=== PATIENT | female | born 1945 | race Caucasian/White ===

== ENCOUNTER 2021-08-31 08:43 | Day surgery (SDC) | payer MEDICARE, OTHER ==
[~2021-08-31] VITALS: Ht 154.9 cm; Wt 79.6 kg
[~2021-08-31 08:43] MED LIST: CAL MAG ZINC +1 EAC1 PO; CEFDINIR300 MG PO; LIPITOR40 MG PO; PROLIA60 MG/1 ML SUB-Q; URISTAT ULTRA99.5 MG PO
[2021-08-31] MEDS ORDERED: CLARITIN10 MG PO (09:21)
[2021-08-31] MEDS ORDERED: LEVOTHYROXINE25 MC1 PO (09:23)
[2021-08-31] MEDS ORDERED: LEVOTHYROXINE88 MC1 PO (09:24)
[2021-08-31] MEDS ORDERED: ZESTRIL40 MG PO (09:24)
--- NOTE | 2021-08-31 10:38 | NUR ---
08/31/21 1038 Sheets,Gogo 1032 PT ARRIVED TO PACU ON 2L VIA NC, PT WAKES EASILY AND DENIES PAIN. VSS. PT EASILY FALLS BACK TO SLEEP. 1036 CO2 53 AND RN WAKES PT AND ENCOURAGES DEEP BREATHING, CO2 DECREASED TO LOW 40S. PT FALLS EASILY BACK TO SLEEP.
--- NOTE | 2021-09-01 06:06 | OR ---
[facility] [address] [place], [place] [address] Signed DATE OF OPERATION: 08/31/2021 SURGEON: Sangeetha Trent MD PREOPERATIVE DIAGNOSES: 1. Personal history of colonic polyps 2010. 2. Internal hemorrhoids. 3. Mother with colonic polyps in her 60s. POSTOPERATIVE DIAGNOSES: 1. 4 mm polyp base of cecum/periappendiceal orifice. 2. 6 mm sessile polyp opposite ileocecal valve. 3. 3 mm polyp mid right colon. 4. 3 mm polyps x2 at 40 cm. 5. 3 mm polyp at 7 cm. 6. Minimal sigmoid diverticulosis. 7. Small internal anal skin tags. 8. Angulated rectosigmoid junction. PROCEDURE: Colonoscopy with hot biopsy. ESTIMATED BLOOD LOSS: None. INDICATIONS: Any is a 76-year-old female asked to see me for a followup colonoscopy. Dr. Baez did her colonoscopy in 2010 at the age of 65. She had adenomatous polyps removed. All polyps were less than 6 mm in diameter. She had internal hemorrhoids. She used Versed and propofol. In five years, she went back in [address] Baez at the age of 70. Again, she had adenomatous polyps removed and the internal hemorrhoids were noted. She was asked to follow up in 5 years. He has since retired in January 2021. She finally made her way over to my office. She told me her mother had benign colonic polyps removed in her 60s. She has no lower GI complaints. No family history of colon cancer. She is known to have a heart murmur. The echocardiogram in 2008 showed minimal aortic stenosis with a cross-sectional area of 1.7 cm2. She said it never limits her activities. Her has been and he is in a wheelchair much of the time and she has to push him around. In the office, I had given her a pamphlet on colonoscopy. She recalls the test well. There is risk including, but not limited to gas bloating, crampy abdominal pain, bleeding, perforation requiring surgery, and missed Electronically Signed By: SANGEETHA TRENT MD 09/01/21 0606 PATIENT NAME: ANY MCCOY OPERATIVE REPORT DATE OF : 49 REPORT #: [id number] PHYSICIAN: SANGEETHA TRENT MD PCP: HUNTER HOLGUIN MD REPORT IS CONFIDENTIAL AND NOT TO BE RELEASED WITHOUT AUTHORIZATION [facility] [address] [place], [place] [address] Signed diagnosis. She also understands the need for the IV conscious sedation. She had expressed understanding and wished to proceed. PROCEDURE NOTE: Any was taken into our endoscopy suite and placed in the left lateral decubitus position. She was given a total of 5 mg of Versed and 200 mcg of fentanyl to cover the case. A digital rectal exam was performed and this was unremarkable. The adult colonoscope had been introduced and advanced under direct visualization of the camera. Her rectosigmoid junction actually took a few minutes as it is quite angulated. It did drag a little on the scope. The scope then passed fairly readily up into the cecum. We used a little bit of abdominal compression and additional sedation in order to advance the scope. Her prep was good. We could easily see the appendiceal orifice and the ileocecal valve. The above-mentioned polyps had been removed with the help of hot biopsy forceps. The scope was then slowly withdrawn. We had taken pictures throughout for photodocumentation. We can see that she does have sigmoid diverticulosis. They were small in size, few in number, and scattered about. Once in the rectum, the scope had been retroflexed and it looks like she mainly has several small internal anal skin tags. After this, the gas was suctioned out and the colonoscope removed. nAy tolerated the procedure quite well. RECOMMENDATIONS: I will see Any back in my office in 7 to 14 days to review her results. I suspect she will stay on the 5-year rotation. She could consider propofol infusion in the future as she is getting older and the risk of perforation is higher and her rectosigmoid junction is quite difficult. Sangeetha Trent MD ALB/MODL /[id number] cc: MD Sangeetha Chavez MD Electronically Signed By: SANGEETHA TRENT MD 09/01/21 0606 PATIENT NAME: ANY MCCOY OPERATIVE REPORT DATE OF : 49 REPORT #: [id number] PHYSICIAN: SANGEETHA TRENT MD PCP: HUNTER HOLGUIN MD REPORT IS CONFIDENTIAL AND NOT TO BE RELEASED WITHOUT AUTHORIZATION [address] [address] Signed Copies: HUNTER HOLGUIN MD, ANDREW L MD ~ Electronically Signed By: SANGEETHA TRENT MD 09/01/21 0606 PATIENT NAME: ANY MCCOY OPERATIVE REPORT DATE OF : 49 REPORT #: [id number] PHYSICIAN: SANGEETHA TRENT MD PCP: HUNTER HOLGUIN MD REPORT IS CONFIDENTIAL AND NOT TO BE RELEASED WITHOUT AUTHORIZATION
--- NOTE | 2021-09-04 15:31 | PATH ---
[facility] [address] [place], [place] [address] Signed SPECIMEN(S): A CECUM POLYP SPECIMEN(S): B ILEOCECAL VALVE POLYP OPPOSITE SPECIMEN(S): C MID ASCENDING/RIGHT COLON POLYP SPECIMEN(S): D COLON POLYP AT 40 CM X2 SPECIMEN(S): E POLYP AT 7 CM SPECIMEN SOURCE: A. CECUM POLYP B. ILEOCECAL VALVE POLYP OPPOSITE C. MID ASCENDING/RIGHT COLON POLYP D. COLON POLYP AT 40 CM X2 E. POLYP AT 7 CM CLINICAL HISTORY: Hx of polyps; internal hemorrhoids. Pos Op: Diverticulosis, polyps, anal skin tags. FINAL PATHOLOGIC DIAGNOSIS: A. Colon, cecum, polyp, polypectomy: - Tubular adenoma. - Negative for high-grade dysplasia or malignancy. B. Colon, opposite to ileocecal valve, polyp, polypectomy: - Tubular adenoma. - Negative for high-grade dysplasia or malignancy. C. Colon, mid ascending, polyp, polypectomy: - Tubular adenoma. - Negative for high-grade dysplasia or malignancy. D. Colon, polyp at 40 cm, polypectomy: - Fragments of cauterized colonic mucosa with no histopathologic abnormality. - Negative for dysplasia or malignancy. E. Colon, polyp at 7 cm, polypectomy: - Hyperplastic polyp. - Negative for dysplasia or malignancy. COMMENT: Regarding specimen D: Multiple additional deeper levels were examined. NAL:cml:C2NR MICROSCOPIC EXAMINATION: Histologic sections of all submitted blocks are examined by light microscopy. These findings, together with the gross examination, support the pathologic PATIENT NAME: APOLLO MCCOY PATHOLOGY DATE OF : 49 REPORT #: [id number] PHYSICIAN: FERMIN LAWRENCE PCP: HUNTER HOLGUIN MD REPORT IS CONFIDENTIAL AND NOT TO BE RELEASED WITHOUT AUTHORIZATION [facility] [address] [place], [place] [address] Signed diagnosis. GROSS DESCRIPTION: Five specimens are received in five containers, labeled "SS." A. The specimen, labeled "SS, cecum polyp," is received in formalin and consists of one brown soft tissue fragment(s) that measure 0.2 cm in greatest dimension. The specimen is entirely submitted in cassette (A1). B. The specimen, labeled "SS, opposite to ileocecal valve polyp," is received in formalin and consists of one brown soft tissue fragment(s) that measure 0.2 cm in greatest dimension. The specimen is entirely submitted in cassette (B1). C. The specimen, labeled "SS, mid ascending colon polyp," is received in formalin and consists of two brown soft tissue fragment(s) that measure 0.1 cm in greatest dimension. The specimen is entirely submitted in cassette (C1). D. The specimen, labeled "SS, colon polyp at 40 cm," is received in formalin and consists of two brown soft tissue fragment(s) that measure 0.2 cm in greatest dimension. The specimen is entirely submitted in cassette (D1). E. The specimen, labeled "SS, colon polyp at 7 cm," is received in formalin and consists of one brown soft tissue fragment(s) that measure 0.2 cm in greatest dimension. The specimen is entirely submitted in cassette (E1). JS (under the direct supervision of a pathologist) The Gross Description was prepared using a voice recognition system. The report was reviewed for accuracy; however, sound-alike word errors, addition and/or deletions may occur. If there is any question about this report, please contact Client Services. PERFORMING LABORATORY: The technical component was performed by [facility], [address] [place] [id number] (Logistics Project Manager: Rose Ordonez MD; CLIA# [id number]). Professional interpretation was performed by [facility], [address] [place], [place] [address] (CLIA# [id number]). Diagnostician: Grace Myles MD Pathologist Electronically Signed 09/04/2021 PATIENT NAME: APOLLO MCCOY PATHOLOGY DATE OF : 49 REPORT #: [id number] PHYSICIAN: FERMIN PATHOLOGY PCP: HUNTER HOLGUIN MD REPORT IS CONFIDENTIAL AND NOT TO BE RELEASED WITHOUT AUTHORIZATION [facility] [address] [facility] [place], [place] [address] Signed Copies: ~ PATIENT NAME: APOLLO MCCOY PATHOLOGY DATE OF : 49 REPORT #: [id number] PHYSICIAN: FERMIN LAWRENCE PCP: HUNTER HOLGUIN MD REPORT IS CONFIDENTIAL AND NOT TO BE RELEASED WITHOUT AUTHORIZATION
== END 2021-08-31 11:15 | disposition home or self-care (01) ==
LOC: DS 08:43 → OPS 08:43 → DS 08:48 → OPS 09:00 → DS 10:30 → OPS 10:30
PROVIDERS: ATTEND Colon & Rectal Surgery
PROC: 0DBE8ZZ Excision of Large Intestine, Via Natural or Artificial Opening Endoscopic (ICD-10-PCS; principal; 2021-08-31 09:00)
DX: D12.2 Benign neoplasm of ascending colon (principal); D12.0 Benign neoplasm of cecum; K57.30 Diverticulosis of large intestine without perforation or abscess without bleeding; K64.8 Other hemorrhoids; K64.4 Residual hemorrhoidal skin tags; K56.609 Unspecified intestinal obstruction, unspecified as to partial versus complete obstruction; E78.5 Hyperlipidemia, unspecified; E03.9 Hypothyroidism, unspecified; I12.9 Hypertensive chronic kidney disease with stage 1 through stage 4 chronic kidney disease, or unspecified chronic kidney disease; N18.30 Chronic kidney disease, stage 3 unspecified; R01.1 Cardiac murmur, unspecified; Z86.010 Personal history of colon polyps; Z88.5 Allergy status to narcotic agent; Z83.71 Family history of colonic polyps; Z88.8 Allergy status to other drugs, medicaments and biological substances
CPT/HCPCS: 99153; G0500; J2250; J3010

== ENCOUNTER 2022-09-14 07:00 | Day surgery (SDC) | payer MEDICARE, OTHER ==
[~2022-09-14] VITALS: Ht 152.4 cm; Wt 80.5 kg
[~2022-09-14 07:00] MED LIST changes: +CIMETIDINE800 MG PO; +CLARITIN10 MG PO; +CO Q-10100 MG PO; +FLOMAX0.4 MG PO; +IRBESARTAN150 MG PO; +LEVOTHYROXINE25 MC1 PO; +LEVOTHYROXINE88 MC1 PO; +MACULAR HEALTH1 EACH PO; +MULTI VITAMIN1 EACH PO; +PROCARDIA XL30 MG PO; +TIMOLOL MALEATE5 M4 OP; +XALATAN2.5 ML OPTH; +ZESTRIL40 MG PO
--- NOTE | 2022-09-14 08:38 | NUR ---
PT ALERT, ORIENTED AND SUPPORTED BY HER DAUGHTER LEIGH ANN.PT IS PLEASANT, HAS HAD THIS SURGERY ON BOTH HANDS AND REDOING LEFT. LEIGH ANN WILL REMAIN FOR DC. REQUEST BY PT FOR PRAYER, GAVE BLESSING AND WILL FOLLOW
[2022-09-14] MEDS ORDERED: HYDROCODON-ACE1 EA10 PO (10:04)
--- NOTE | 2022-09-14 10:55 | NUR ---
09/14/22 1055 Karen Molina 0956 PT TO PACU SLEEPY BUT AROUSABLE DENIES PAIN AND NAUSEA.
--- NOTE | 2022-09-17 07:05 | OR ---
[facility] [facility] [address] [place], [place] [address] Signed DATE OF OPERATION: 09/14/2022 SURGEON: Susan Molina MD PREOPERATIVE DIAGNOSES: 1. Recurrent carpal tunnel syndrome, left. 2. Recurrent trigger finger, left ring and long. POSTOPERATIVE DIAGNOSES: 1. Recurrent carpal tunnel syndrome, left. 2. Recurrent trigger finger, left ring and long. PROCEDURES PERFORMED: 1. Revision carpal tunnel release. 2. Revision trigger finger releases long and ring. LONG DISTANCE BILLING OPERATOR: None. ANESTHESIA: Darrin block. TOURNIQUET TIME: 36 minutes. BRIEF HISTORY: Apollo is a 77-year-old female, who had both trigger fingers released and her carpal tunnel done 7 years ago in [place]. She had continued to have symptoms that have worsened since then. Repeat nerve conduction study showed the median nerve to still be under pressure and the trigger fingers were locking on her. Risks and benefits of operative treatment were discussed with her. She elected to proceed. DESCRIPTION OF PROCEDURE: Once consent was obtained, she was taken to the operating room. After adequate anesthesia, she was placed on the operating room table. All downside pressure points were well padded. The arm was prepped and draped in a standard sterile fashion after the [place] block was established. The two trigger fingers were approached 1st. The long finger was approached through a 1.5 cm incision, carried through the skin and subcutaneous tissue. There was moderate scar tissue. We got down to the tendon sheath and dissected free of overlying soft tissue. The A1 yudy was identified under loupe Electronically Signed By: SUSAN MOLINA MD 09/17/22 0705 PATIENT NAME: APOLLO MCCOY OPERATIVE REPORT DATE OF : 49 REPORT #: [id number] PHYSICIAN: SUSAN MOLINA MD PCP: HUNTER HOLGUIN MD REPORT IS CONFIDENTIAL AND NOT TO BE RELEASED WITHOUT AUTHORIZATION [facility] [address] [place], [place] [address] Signed magnification and was released. There was some fraying of the tendon proximal to the A1 yudy. This occupied about 10% of the tendon length, primarily in the superficialis. The finger was moved and the tendon was noted to move freely. The ring finger was then approached through a similar incision, carried down to the tendon sheath. Again, it was dissected free of overlying soft tissue and released. The tendon was in good shape on this side. The patient was then awakened and asked to move her hand. She was able to fully flex and fully extend. No triggering or locking. Attention was then turned to the carpal tunnel. The prior incision for the carpal tunnel was fairly far to the ulnar side. We extended this to a more radial position and carried through the skin and subcutaneous tissue. Palmaris longus was identified, retracted, and protected. The transverse carpal ligament was then identified again under loupe magnification and was dissected free of overlying soft tissue. The transverse carpal ligament was then released proximally a cm and distally as far as we could see adequately due to the extensive scar tissue and thickening of the transverse carpal ligament. It was approximately 4 mm thick at this stage. Due to poor visualization, it was then decided to make a 2nd counter incision in the mid palmar crease at Vila's cardinal line. This was carried through the skin subcutaneous tissue and directly down on the distal extent of the transverse carpal ligament. Again, this was released proximally until we could see the median nerve and excellent release was obtained. This was palpated using a Ambia and found to be completely released. All wounds were then copiously irrigated with normal saline, closed with 3-0 nylon and injected with 10 mL of 0.25% Marcaine plain. The wounds were then dressed with bacitracin, Adaptic, 4 x 8s, and gauze. She tolerated the procedure well. All sponge, needle, and instrument counts were correct. Susan Molina MD BA/MODL /[id number] Copies: ~ Electronically Signed By: SUSAN MOLINA MD 09/17/22 0705 PATIENT NAME: APOLOL MCCOY OPERATIVE REPORT DATE OF : 49 REPORT #: [id number] PHYSICIAN: SUSAN MOLINA MD PCP: HUNTER HOLGUIN MD REPORT IS CONFIDENTIAL AND NOT TO BE RELEASED WITHOUT AUTHORIZATION
== END 2022-09-14 10:53 | disposition home or self-care (01) ==
LOC: DS 07:00
PROVIDERS: ATTEND Specialist
PROC: 01N50ZZ Release Median Nerve, Open Approach (ICD-10-PCS; principal; 2022-09-14 09:05)
PROC: 0LN80ZZ Release Left Hand Tendon, Open Approach (ICD-10-PCS; 2022-09-14 09:05)
DX: G56.02 Carpal tunnel syndrome, left upper limb (principal); M65.342 Trigger finger, left ring finger; N18.30 Chronic kidney disease, stage 3 unspecified; I12.9 Hypertensive chronic kidney disease with stage 1 through stage 4 chronic kidney disease, or unspecified chronic kidney disease; E03.9 Hypothyroidism, unspecified; Z85.3 Personal history of malignant neoplasm of breast; Z90.11 Acquired absence of right breast and nipple
CPT/HCPCS: J0690; J2001; J2250; J2405; J2704; J7121

== ENCOUNTER 2024-02-10 08:23 | Emergency (ER) | payer MEDICARE, OTHER ==
[~2024-02-10] VITALS: Ht 152.4 cm; Wt 72.3 kg
[2024-02-10] MEDS ORDERED: GABAPENTIN 300 MG CAP PO ONE (09:00)
[2024-02-10] MEDS ORDERED: CYCLOBENZAPRINE HCL 10 MG TAB PO ONE (09:00)
[2024-02-10 09:40] VITALS: BP 132/75
== END 2024-02-10 09:39 | disposition home or self-care (01) ==
LOC: ED 08:23
DX: R07.81 Pleurodynia (principal); I10 Essential (primary) hypertension; E03.9 Hypothyroidism, unspecified; Z88.5 Allergy status to narcotic agent; Z88.6 Allergy status to analgesic agent; Z88.8 Allergy status to other drugs, medicaments and biological substances; Z79.899 Other long term (current) drug therapy; Z79.890 Hormone replacement therapy
CPT/HCPCS: 71101; 99283; A9270